=== PATIENT | female | born 1970 | race Caucasian/White ===

== ENCOUNTER 2023-09-14 11:00 | Outpatient (AMB) | payer MEDICARE, SELFPAY ==
--- NOTE | 2023-09-14 11:43 | A.OFFPC_ITS ---
Vital Signs 09/14/23 11:53 BMI Reason not done Patient refused/unable BP 118/82 Blood Pressure Location Lt brachial Position Sitting Respiration 16 Pulse 59 Pulse Source Pulse Oximeter Pulse Oximetry (%) 98 Oxygen Delivery Method Room Air Intake Visit Reasons: pain right wrist Intake Note: New patient visit. Right wrsit pain. Eligibility Specialist Required: No Allergies acetaminophen [From Percocet] Allergy (Verified 09/14/23 11:48) Vomiting oxycodone [From Percocet] Allergy (Verified 09/14/23 11:48) Vomiting adhesive bandaids Allergy (Uncoded 09/14/23 11:48) skin irritation Medication List - Last Reconciled 09/14/23 by Khadra Abarca MD acetaminophen (Tylenol Extra Strength) 1,000 mg PO BID PRN baclofen 10 mg PO TID ywwbnbjqmb-zkycmzbkbojxa-ldqg 50-325-40 mg 1 tab PO Q4H PRN diclofenac sodium 1% (Voltaren Arthritis Pain) 2 grams topical QID diphenhydramine HCl (Allergy Relief (diphenhydramine)) 25 mg PO BID PRN divalproex 125 mg PO BEDTIME ergocalciferol (vitamin D2) PO fexofenadine (Shirin Allergy) 180 mg PO DAILY ketotifen fumarate 0.025%(0.035%) (Zaditor) 1 drp ophthalmic (eye) BID levothyroxine 100 mcg PO DAILY loperamide 2 mg PO BID PRN loratadine (Claritin) 10 mg PO DAILY lorazepam 2 mg PO .every other day PRN medroxyprogesterone 150 mg IM [id number] multivitamin 1 tab PO DAILY omega 7-uqx-fhq-fish oil 1,000 mg (120 mg-180 mg) (Fish Oil) 1 cap PO DAILY tizanidine 2 mg PO TID triamterene-hydrochlorothiazid 37.5-25 mg 1 cap PO DAILY venlafaxine ER 150 mg PO DAILY Tobacco use date assessed: 09/14/23 Dental Screening Dental Screen Date: 09/14/23 Did you have a dental visit in the last 12 months?: Yes Did you have a dental problem in the last 6 months where you did not have access to dental care?: No Was dental information given to patient?: Patient has dentist HPI HPI Comments History of Present Illness Details 53 year old female with past medical cer ebral palsy with sequelae, continous WC use presenting for increased right hand pain Right hand pain. Says seen in urgent care. Pain is worse in medial wrist, base of thumb and 1st mcp. Doing PT/OT. Just OT now. Would like to extend ROS see HPI PHYSICAL EXAM: GENERAL: Alert and oriented x 3. NAD EYES: EOMI. Anicteric. HENT: Moist mucous membranes. No scleral icterus. No cervical lymphadenopathy. LUNGS: Clear to auscultation bilaterally. CARDIOVASCULAR: Regular rate and rhythm. No murmur. No JVD. ABDOMEN: Soft, non-tender +bs EXTREMITIES: No edema. Non-tender. SKIN: No rashes or lesions. Warm. NEUROLOGIC: No focal neurological deficits. CN II-XII grossly intact PSYCHIATRIC: Cooperative. Appropriate mood and affect [facility] Medical History (Updated 09/19/23 @ 11:35 by Khadra Abarca MD) Spasticity Seasonal allergies Obesity, Class I, BMI 30-34.9 Lymphedema Lobular carcinoma HTN (hypertension) Anxiety and depression Family History (Updated 09/14/23 @ 12:31 by Roxana Monique CMA) Father Throat cancer Mother Fibromyalgia Maternal Grandfather Lung cancer Emphysema lung Paternal Grandfather Diabetes Lymphoma Paternal Grandmother Lymphoma Social History (Updated 09/14/23 @ 11:53 by Roxana Monique CMA) Housing: House Patient Tobacco Use Status: Never used Tobacco e-Cigarette/Vaping Use: Never Used Second Hand Smoke Exposure: Yes Substance Use Type: Marijuana service: Yes Current occupational status: unemployed Cognitive needs: No Hearing needs: No Vision needs: Yes (glasses) Questionnaire PHQ-9 Over the last 2 weeks, how often have you been bothered by any of the following problems? 1. Little interest or pleasure in doing things: several days 2. Feeling down, depressed, or hopeless: several days 3. Trouble falling or staying asleep, or sleeping too much: more than half the days 4. Feeling tired or having little energy: more than half the days 5. Poor appetite or overeating: nearly every day 6. Feeling bad about yourself - or that you are a failure or have let yourself or your family down: more than half the days 7. Trouble concentrating on things, such as reading the newspaper or watching television: not at all 8. Moving or speaking so slowly that other people could have noticed. Or the opposite - being so fidgety or restless that you have been moving around a lot more than usual: not at all 9. Thoughts that you would be better off or of hurting yourself in some way: not at all Total score: 11 Depression Screening Interpretation: Positive Depression Screening Follow-up: Existing condition Depression Screening Done: Yes 61685 - PHQ-9 Billing: Yes Source: Developed by Drs. Aris Wakefield, Marycruz Louis, Kelton Altamirano and colleagues, with an educational santos from [employer]. Thrive Questionnaire Date Thrive assessed: 09/14/23 I am a: Patient What is your living situation today?: I have a steady place to live Within the past 12 months, did the food you bought not last and you didn't have the money to get more?: Never true Within the past 12 months, did you worry whether your food would run out before you got money to buy more?: Never true Do you have trouble paying for medicines?: No Do you have trouble getting transportation to medical appointments?: No Do you have trouble paying your heating and electricity bill?: No Do you have trouble taking care of your child, family member or friend?: No Do you have trouble with day-to-day activities such as bathing, preparing meals, shopping, managing finances, etc.?: No (Has help with this) Are you currently unemployed and looking for a job?: No Are you interested in more education?: No Please select the resources that you would like help with: None Currently or been in a relationship where the following occur: no concerns reported THRIVE Score: 0 AUDIT C Alcohol Use Questionnaire (AUDIT-C) 1. How often do you have a drink containing alcohol?: 2-4 times a month 2. How many drinks containing alcohol do you have on a typical day when you are drinking?: 1 or 2 3. How often do you have six or more drinks on one occasion?: Never Total Score: 2 MARJORIE-7 AMB Questionnaire MARJORIE-7 Date MARJORIE - 7 assessed: 09/14/23 Feeling nervous, anxious, or on edge: 1 = Several days Not being able to stop or control worryin = Not at all Worrying too much about different things: 0 = Not at all Trouble relaxin = Not at all Being so restless that it is hard to sit still: 0 = Not at all Becoming easily annoyed or irritable: 0 = Not at all Feeling afraid as if something awful might happen: 0 = Not at all Total MARJORIE-7 score (0-4 normal; 5-9 mild; 10-14 moderate; 15-21 severe): 1 Source: Developed by Drs. Aris Wakefield, Marycruz Louis, Kelton Altamirano and colleagues, with an educational santos from [employer]. MARJORIE-7 Assessment Billing MARJORIE-7 Assessment Tool: MARJORIE-7 Assessment 54844 Physical exam (Primary Care) Vital Signs: Last Vital Signs Pulse 59 09/14/23 11:53 Resp 16 09/14/23 11:53 BP 118/82 09/14/23 11:53 Pulse Ox 98 09/14/23 11:53 Oxygen Delivery Method Room Air 09/14/23 11:53 Tobacco/Smoking Status: Tobacco use Status Tobacco use date assessed 09/14/23 09/14/23 11:58 Patient Tobacco Use Status Never used Tobacco 09/14/23 11:58 e-Cigarette/Vaping Use Never Used 09/14/23 11:58 PHQ-9: PHQ-9 Score PHQ-9: Total score 11 09/14/23 12:43 Depression Screening Interpretation: Positive Depression Screening Follow-up: Existing condition Thrive Assessment: Date of Thrive Assessment Date Thrive assessed 09/14/23 09/14/23 11:58 Currently or been in a relationship where the following occur: no concerns reported Assessment and Plan Assessment & Plan (1) De Quervain's tenosynovitis, right: Code(s): M65.4 - Radial styloid tenosynovitis [de Quervain] Orders: Orders OT Evaluation and Treatment 09/14/23 G80.9 - Cerebral palsy, unspecified, M65.4 - Radial styloid tenosynovitis [de Quervain] Medications: New diclofenac sodium 1% (Voltaren Arthritis Pain) apply to single elbow, wrist or hand; for hand includes palm/fingers/back of hand 2 grams topical QID 100 grams 0RF itvldhyqoa-finyjfmdtenza-wmez 50-325-40 mg 1 tab PO Q4H PRN 60 tabs 1RF headache 30 days Coding Level of Care Code Est Pt Level 4 (26432) Diagnoses De Quervain's tenosynovitis, right M65.4 Additional Codes MARJORIE-7 Assessment Billing - MARJORIE-7 Assessment Tool: MARJORIE-7 Assessment 26331 ([id number])
[2023-09-14 11:53] VITALS: BP 118/82; PULSE 59; RESP 16; O2SAT 98
== END 2023-09-14 12:47 | disposition home or self-care (01) ==
PROVIDERS: PCP Internal Medicine; Visit Provider Internal Medicine
DX: M65.4 Radial styloid tenosynovitis [de Quervain] (principal)
CPT/HCPCS: 99214

== ENCOUNTER 2023-11-30 10:21 | Outpatient (AMB) | payer MEDICARE, SELFPAY ==
[2023-11-30 11:37] VITALS: BP 123/79; PULSE 51; O2SAT 100
--- NOTE | 2023-11-30 11:37 | A.OFFPC_ITS ---
Vital Signs 11/30/23 11:37 BMI Reason not done Patient refused/unable BP 123/79 Blood Pressure Location Lt radial Position Sitting Pulse 51 Pulse Source Pulse Oximeter Pulse Oximetry (%) 100 Oxygen Delivery Method Room Air Intake Visit Reasons: ANNUAL Intake Note: -Patient is here to have an annual exam. -Patient reports she is out of fioricet and [facility] responded[facility] -[facility]- fax when done and give to patient today. -[facility]- reports they have not received the form yet. -patient would like to discuss flu shot and covid shot. Information Management Specialist Required: No Accompanied by: Self / Same As Patient Allergies acetaminophen [From Percocet] Allergy (Verified 11/30/23 11:50) Vomiting oxycodone [From Percocet] Allergy (Verified 11/30/23 11:50) Vomiting adhesive bandaids Allergy (Uncoded 11/30/23 11:50) skin irritation Tobacco use date assessed: 09/14/23 Dental Screening Dental Screen Date: 09/14/23 HPI HPI Comments History of Present Illness Details 53 year old female with past medical cer ebral palsy with sequelae, WC bound, depression, hypertension headaches, hypothyroid, allergic rhinitis presenting for physical exam CV: On trimaterene-HCTZ 37.5-25mg daily. BP 123/79. No chest pain pain CP: Weakness, deficits in coordination, balance. -Right hand pain. Says seen in urgent ca re. Pain is worse in medial wrist, base of thumb and 1st mcp. Doing PT/OT -She currently has 6 hours care at home daily. She is at least a partial assist for all of her ADLs (toileting, grooming, showering), full assist for many (cooking, cleaning). Sister does finances BH: Currently without psych provider. On effexor 150mg daily, divalproex Endo: Hypothyroid stable on levothyroxine 100mcg daily. Reports recent mammo Decllines colonoscopy. Tried cologuard twice but results invalid ROS see HPI PHYSICAL EXAM: GENERAL: Comfortable in WC. Alert and oriented x 3. NAD EYES: EOMI. Anicteric. HENT: Moist mucous membranes. No scleral icterus. No cervical lymphadenopathy. LUNGS: Clear to auscultation bilaterally. CARDIOVASCULAR: Regular rate and rhythm. No murmur. No JVD. ABDOMEN: Soft, non-tender +bs EXTREMITIES: No edema. Non-tender. SKIN: No rashes or lesions. Warm. NEUROLOGIC: Stable chronic neurologic sequelae PSYCHIATRIC: Cooperative. Appropriate mood and affect [facility] Medical History (Updated 12/01/23 @ 11:09 by Khadra Abarca MD) Spasticity Seasonal allergies Obesity, Class I, BMI 30-34.9 Lymphedema Lobular carcinoma HTN (hypertension) Anxiety and depression Family History Father Throat cancer Mother Fibromyalgia Maternal Grandfather Lung cancer Emphysema lung Paternal Grandfather Diabetes Lymphoma Paternal Grandmother Lymphoma Social History Housing: House Patient Tobacco Use Status: Never used Tobacco e-Cigarette/Vaping Use: Never Used Second Hand Smoke Exposure: Yes Substance Use Type: Marijuana service: Yes Current occupational status: unemployed Cognitive needs: No Hearing needs: No Vision needs: Yes (glasses) Questionnaire Thrive Questionnaire Date Thrive assessed: 09/14/23 MARJORIE-7 AMB Questionnaire MARJORIE-7 Date MARJORIE - 7 assessed: 09/14/23 Source: Developed by Drs. Aris Wakefield, Marycruz Louis, Kelton Altamirano and colleagues, with an educational santos from [employer]. Physical exam (Primary Care) Vital Signs: Last Vital Signs Pulse 51 11/30/23 11:37 BP 123/79 11/30/23 11:37 Pulse Ox 100 11/30/23 11:37 Oxygen Delivery Method Room Air 11/30/23 11:37 Tobacco/Smoking Status: Tobacco use Status Tobacco use date assessed 09/14/23 11/30/23 11:38 Patient Tobacco Use Status Never used Tobacco 11/30/23 11:38 e-Cigarette/Vaping Use Never Used 11/30/23 11:38 Thrive Assessment: Date of Thrive Assessment Date Thrive assessed 09/14/23 11/30/23 11:38 Assessment and Plan Assessment & Plan (1) Physical exam: Code(s): Z00.00 - Encounter for general adult medical examination without abnormal findings Plan: 53 y/o for physical Chart reviewed, updated Preventive measures discussed. (2) Cerebral palsy: Code(s): G80.9 - Cerebral palsy, unspecified Qualifiers: Cerebral palsy type: spastic quadriplegic Qualified Code(s): G80.0 - Spastic quadriplegic cerebral palsy Plan: She is almost full assist with all ADLS. Recommend homemaker assist increase hours to 10h/day. Currently at 6 (3) Major depression, recurrent: Code(s): F33.9 - Major depressive disorder, recurrent, unspecified Qualifiers: Active/Remission status: in partial remission Qualified Code(s): F33.41 - Major depressive disorder, recurrent, in partial remission Plan: stable. continue current medications Orders: Orders TSH reflex Free T4 11/30/23 E03.9 - Hypothyroidism, unspecified, G80.9 - Cerebral palsy, unspecified, Z00.00 - Encounter for general adult medical examination without abnormal findings, Z13.0 - Encounter for screening for diseases of the blood and blood-forming organs and certain disorders involving the immune mechanism, Z13.220 - Encounter for screening for lipoid disorders, Z13.228 - Encounter for screening for other metabolic disorders IRON PROFILE 11/30/23 E03.9 - Hypothyroidism, unspecified, G80.9 - Cerebral palsy, unspecified, Z00.00 - Encounter for general adult medical examination without abnormal findings, Z13.0 - Encounter for screening for diseases of the blood and blood-forming organs and certain disorders involving the immune mechanism, Z13.220 - Encounter for screening for lipoid disorders, Z13.228 - Encounter for screening for other metabolic disorders UA CC w/rflx Micro + Cult 11/30/23 Z00.00 - Encounter for general adult medical examination without abnormal findings, Z13.228 - Encounter for screening for other metabolic disorders Complete Blood Count Auto Diff 11/30/23 E03.9 - Hypothyroidism, unspecified, G80.9 - Cerebral palsy, unspecified, Z00.00 - Encounter for general adult medical examination without abnormal findings, Z13.0 - Encounter for screening for diseases of the blood and blood-forming organs and certain disorders involving the immune mechanism, Z13.220 - Encounter for screening for lipoid disorders, Z13.228 - Encounter for screening for other metabolic disorders Comprehensive Met. Panel 11/30/23 E03.9 - Hypothyroidism, unspecified, G80.9 - Cerebral palsy, unspecified, Z00.00 - Encounter for general adult medical examination without abnormal findings, Z13.0 - Encounter for screening for diseases of the blood and blood-forming organs and certain disorders involving the immune mechanism, Z13.220 - Encounter for screening for lipoid disorders, Z13.228 - Encounter for screening for other metabolic disorders Lipid Panel 11/30/23 E03.9 - Hypothyroidism, unspecified, G80.9 - Cerebral palsy, unspecified, Z00.00 - Encounter for general adult medical examination without abnormal findings, Z13.0 - Encounter for screening for diseases of the blood and blood-forming organs and certain disorders involving the immune mechanism, Z13.220 - Encounter for screening for lipoid disorders, Z13.228 - Encounter for screening for other metabolic disorders Medications: Changed From ergocalciferol (vitamin D2) PO To ergocalciferol (vitamin D2) 50,000 units PO QWEEK 12 caps 3RF 12 weeks Coding Level of Care Code Est Pt Prev Care 40-64y(60289) Diagnoses Physical exam Z00.00 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
== END 2023-11-30 12:57 | disposition home or self-care (01) ==
PROVIDERS: PCP Internal Medicine; Visit Provider Internal Medicine
DX: Z00.00 Encounter for general adult medical examination without abnormal findings (principal); G80.0 Spastic quadriplegic cerebral palsy; F33.41 Major depressive disorder, recurrent, in partial remission
CPT/HCPCS: 99396

== ENCOUNTER 2023-11-30 12:19 | Outpatient (REF) | payer MEDICARE, SELFPAY ==
[2023-11-30 14:09] LABS: MANUAL DIFF FLAG NO
[2023-11-30 14:13] LABS: Basophils Absolute Auto 0.1 X10*3/uL (0.0-0.2); Basophils Percent Auto 0.6 % (0-2); Eosinophils Absolute Auto 0.1 X10*3/uL (0.0-0.4); Eosinophils Percent Auto 1.1 % (0-4); Hematocrit 45.4 % (37.0-47.0); Hemoglobin 15.5 g/dl (12.0-16.0); Imm Gran Abs Auto 0.01 X10*3/uL (0.00-0.03); Imm Gran Pct Auto 0.1 % (0.0-0.4); Lymphocytes Absolute Auto 2.2 X10*3/uL (1.2-4.9); Lymphocytes Percent Auto 27.1 % (20-40); Mean Corpuscular HGB Conc 34.1 g/dl (31.0-35.0); Mean Corpuscular Hemoglobin 30.8 pg (27.0-33.0); Mean Corpuscular Volume 90.3 fL (80.0-98.0); Mean Platelet Volume 8.9 fL (9.4-12.3); Monocytes Absolute Auto 0.5 X10*3/uL (0.1-1.2); Monocytes Percent Auto 5.8 % (2-11); Neutrophils Absolute Auto 5.3 x10*3/uL (2.0-8.3); Neutrophils Percent Auto 65.3 % (45-73); Platelet Count 320 X10*3/uL (160-400); Red Blood Count 5.03 X10*6/uL (4.20-5.50); Red Cell Distribution Width 13.2 % (11.0-16.0); White Blood Count 8.2 X10*3/uL (4.8-10.8)
[2023-11-30 14:44] LABS: Alanine Aminotransferase 24 U/L (0-31); Albumin Level 4.2 g/dL (3.5-5.0); Alkaline Phosphatase 108 U/L (39-117); Anion Gap 13 (12-20); Aspartate Amino Transferase 22 U/L (5-31); Bilirubin Total 0.2 mg/dL (0.0-1.0); Blood Urea Nitrogen 11 mg/dL (9-16); Calcium 9.6 mg/dL (8.4-10.2); Carbon Dioxide 25 mmol/L (22-29); Chloride 107 mmol/L (96-108); Cholesterol 192 mg/dL (<200); Estimated Glomerular Filt Rate > 60; Glucose Random 90 mg/dL (60-115); HDL Cholesterol 37 mg/dL (>40); Iron 68 mcg/dL (30-160); LDL Cholesterol Calculated 136 mg/dL (<100); Percent Iron Saturation 24 % (15-50); Potassium 3.7 mmol/L (3.3-5.1); Sodium 141 mmol/L (135-145); Total Iron Binding Capacity 286 mcg/dL (228-428); Triglycerides 98 mg/dL (<150); Unsaturated Iron Binding 218 ug/dL
[2023-11-30 15:05] LABS: TSH reflex Free T4 1.05 uIU/mL (0.32-4.0)
== END 2023-11-30 12:20 | disposition home or self-care (01) ==
LOC: HO.WFDLDS 12:19
PROVIDERS: Visit Provider Internal Medicine
DX: Z00.00 Encounter for general adult medical examination without abnormal findings (principal); Z13.0 Encounter for screening for diseases of the blood and blood-forming organs and certain disorders involving the immune mechanism; Z13.228 Encounter for screening for other metabolic disorders; G80.9 Cerebral palsy, unspecified; Z13.220 Encounter for screening for lipoid disorders; E03.9 Hypothyroidism, unspecified
CPT/HCPCS: 36415; 80053; 80061; 83540; 84443; 85025

== ENCOUNTER 2024-04-03 10:34 | Outpatient (AMB) | payer MEDICARE, SELFPAY ==
--- NOTE | 2024-04-03 11:33 | A.OFFPC_ITS ---
Vital Signs 04/03/24 11:37 BMI Reason not done Patient refused/unable BP 110/82 Blood Pressure Location Rt brachial Position Sitting Pulse 53 Pulse Source Pulse Oximeter Pulse Oximetry (%) 100 Oxygen Delivery Method Room Air Intake Visit Reasons: four month follow up Intake Note: Four month follow up. Needs refill on fioriocet, triamterene HCTZ, Diclofenac gel, and Lorazepam Transition Social Worker Required: No Allergies acetaminophen [From Percocet] Allergy (Verified 04/03/24 11:33) Vomiting oxycodone [From Percocet] Allergy (Verified 04/03/24 11:33) Vomiting adhesive bandaids Allergy (Uncoded 04/03/24 11:33) skin irritation Tobacco use date assessed: 09/14/23 Dental Screening Dental Screen Date: 09/14/23 HPI HPI Comments History of Present Illness Details 53 year old female with past medical cer ebral palsy with sequelae, WC bound, depression, hypertension headaches, hypothyroid, allergic rhinitis presenting for follow up CV: On trimaterene-HCTZ 37.5-25mg daily. BP well controlled. No chest pain or shortness of breath CP: Weakness, deficits in coordination, balance. -Right hand pain. Says seen in urgent ca re. Pain is worse in medial wrist, base of thumb and 1st mcp. Doing PT/OT -She currently has 6 hours care at home daily. She is at least a partial assist for all of her ADLs (toileting, grooming, showering), full assist for many (cooking, cleaning). Sister does finances -Incontinence: Has been purchasing out o f pocket 120 pull up per month and 30 depends-this is a financial stressor BH: Currently without psych provider. On effexor 150mg daily, divalproex. Sister is having to move out of her house to show the house which is causing her stress-she requests referral for prescribing provider and therapist Endo: Hypothyroid stable on levothyroxine 100mcg daily. Reports mammo UTD Decllines colonoscopy. Tried cologuard twice but results invalid ROS see HPI PHYSICAL EXAM: GENERAL: Comfortable in WC. Alert and oriented x 3. NAD EYES: EOMI. Anicteric. HENT: Moist mucous membranes. No scleral icterus. No cervical lymphadenopathy. LUNGS: Clear to auscultation bilaterally. CARDIOVASCULAR: Regular rate and rhythm. No murmur. No JVD. ABDOMEN: Soft, non-tender +bs EXTREMITIES: No edema. Non-tender. SKIN: No rashes or lesions. Warm. NEUROLOGIC: Stable chronic neurologic sequelae PSYCHIATRIC: Cooperative. Appropriate mood and affect [facility] Medical History (Updated 04/03/24 @ 11:54 by Khadra Abarca MD) Spasticity Seasonal allergies Obesity, Class I, BMI 30-34.9 Lymphedema Lobular carcinoma HTN (hypertension) Anxiety and depression Family History Father Throat cancer Mother Fibromyalgia Maternal Grandfather Lung cancer Emphysema lung Paternal Grandfather Diabetes Lymphoma Paternal Grandmother Lymphoma Social History Housing: House Patient Tobacco Use Status: Never used Tobacco e-Cigarette/Vaping Use: Never Used Second Hand Smoke Exposure: Yes Substance Use Type: Marijuana service: Yes Current occupational status: unemployed Cognitive needs: No Hearing needs: No Vision needs: Yes (glasses) Questionnaire Thrive Questionnaire Date Thrive assessed: 09/14/23 MARJORIE-7 AMB Questionnaire MARJORIE-7 Date MARJORIE - 7 assessed: 09/14/23 Source: Developed by Drs. Aris Wakefield, Marycruz Louis, Kelton Altamirano and colleagues, with an educational santos from [employer]. Physical exam (Primary Care) Vital Signs: Last Vital Signs Pulse 53 04/03/24 11:37 BP 110/82 04/03/24 11:37 Pulse Ox 100 04/03/24 11:37 Oxygen Delivery Method Room Air 04/03/24 11:37 Tobacco/Smoking Status: Tobacco use Status Tobacco use date assessed 09/14/23 04/03/24 11:40 Patient Tobacco Use Status Never used Tobacco 04/03/24 11:40 e-Cigarette/Vaping Use Never Used 04/03/24 11:40 Thrive Assessment: Date of Thrive Assessment Date Thrive assessed 09/14/23 04/03/24 11:40 Coding Level of Care Code Est Pt Level 4 (62691) Diagnoses Recurrent major depressive disorder, in partial remission F33.41 Active/Remission status: in partial remission 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 Assessment & Plan Assessment & Plan (1) Major depression, recurrent: Code(s): F33.9 - Major depressive disorder, recurrent, unspecified Category: Medical Qualifiers: Active/Remission status: in partial remission Qualified Code(s): F33.41 - Major depressive disorder, recurrent, in partial remission Plan: referral to psychiatry placed continue current medication (2) Cerebral palsy: Code(s): G80.9 - Cerebral palsy, unspecified Category: Medical Qualifiers: Cerebral palsy type: spastic quadriplegic Qualified Code(s): G80.0 - Spastic quadriplegic cerebral palsy Plan: with chronic sequelae DME printed and handed to patient Orders: Referrals Psychiatry Referral F33.41 - Major depressive disorder, recurrent, in partial remission, G80.0 - Spastic quadriplegic cerebral palsy Medications: New triamterene-hydrochlorothiazid 37.5-25 mg 1 cap PO DAILY 90 caps 3RF [Pullups-2xl] 1 each four times daily 120 ea 11RF G80.0 - Spastic quadriplegic cerebral palsy, R32 - Unspecified urinary incontinence venlafaxine ER 150 mg PO DAILY 90 caps 3RF [Depends-2xl] Once daily as needed for incontinence 30 ea 11RF G80.0 - Spastic quadriplegic cerebral palsy, R32 - Unspecified urinary incontinence tirzepatide (weight loss) (Zepbound) for 4 weeks 2.5 mg (0.5 mL) subcut QWEEK 2 mL 3RF Refilled itwaqvegyn-krjxcskqszclc-ofcm 50-325-40 mg 1 tab PO Q4H 30 days PRN 60 tabs 0RF pain lorazepam 2 mg PO DAILY PRN 30 tabs 3RF anxiety, muscle spasm
[2024-04-03 11:37] VITALS: BP 110/82; PULSE 53; O2SAT 100
== END 2024-04-03 12:13 | disposition home or self-care (01) ==
LOC: HO.HMCFM 10:34
PROVIDERS: PCP Internal Medicine; Visit Provider Internal Medicine
DX: F33.41 Major depressive disorder, recurrent, in partial remission (principal); G80.0 Spastic quadriplegic cerebral palsy

== ENCOUNTER → 2024-04-03 10:34 | Outpatient (BNVA) | payer MEDICARE, SELFPAY | PROVIDERS: PCP Internal Medicine; Visit Provider Internal Medicine | DX: F33.41 Major depressive disorder, recurrent, in partial remission (principal); G80.0 Spastic quadriplegic cerebral palsy; I10 Essential (primary) hypertension; E03.9 Hypothyroidism, unspecified; Z79.899 Other long term (current) drug therapy | CPT/HCPCS: 99212 ==

== ENCOUNTER 2024-07-25 10:04 | Outpatient (AMB) | payer MEDICARE, MEDICAID, SELFPAY ==
--- NOTE | 2024-07-25 10:29 | MHC.PC.OV ---
Vital Signs 07/25/24 10:39 Height 5 ft 1 in Weight 222 lb 3 oz BMI 42.0 BP 112/64 Blood Pressure Location Lt brachial Position Sitting Pulse 67 Pulse Source Pulse Oximeter Temp 97.4 F Temp Source Temporal Artery Scan Pulse Oximetry (%) 96 Oxygen Delivery Method Room Air Intake Visit Reasons: follow-up care, resched Intake Note: Nata presents in the offie today for a follow up. Allergies acetaminophen [From Percocet] Allergy (Verified 07/25/24 10:33) Vomiting oxycodone [From Percocet] Allergy (Verified 07/25/24 10:33) Vomiting adhesive bandaids Allergy (Uncoded 04/03/24 11:33) skin irritation Tobacco use date assessed: 07/25/24 Dental Screening Dental Screen Date: 07/25/24 Did you have a dental visit in the last 12 months?: Yes Did you have a dental problem in the last 6 months where you did not have access to dental care?: No Was dental information given to patient?: Patient has dentist HPI HPI Comments History of Present Illness Details 53 year old female with past medical cerebral palsy with sequelae, WC bound, depression, hypertension, hyperlipidemia, headaches, hypothyroid, allergic rhinitis presenting for follow up CV: On trimaterene-HCTZ 37.5-25mg daily. BP well controlled. No chest pain or shortness of breath. she has hld, not on statin therapy CP: Weakness, deficits in coordination, balance. Paperwork today to get necessary home health-completed. -Right hand pain. Pain is worse in medial wrist, base of thumb and 1st mcp. Doing PT/OT -She is at least a partial assist for all of her ADLs (toileting, grooming, showering), full assist for many (cooking, cleaning). Sister does finances -Incontinence: Has been purchasing out of pocket 120 pull up per month and 30 depends-this is a financial stressor. she has received a script or this BH: Currently without psych provider. On effexor 150mg daily, divalproex. Sister is having to move out of her house to show the house which is causing her stress-she requests referral for prescribing provider and therapist Endo: Hypothyroid stable on levothyroxine 100mcg daily. She is obese and unable to exercise. she received a zepbound denial. Reports mammo UTD Decllines colonoscopy. Tried cologuard twice but results invalid ROS see HPI PHYSICAL EXAM: GENERAL: Comfortable in WC. Alert and oriented x 3. NAD EYES: EOMI. Anicteric. HENT: Moist mucous membranes. No scleral icterus. No cervical lymphadenopathy. LUNGS: Clear to auscultation bilaterally. CARDIOVASCULAR: Regular rate and rhythm. No murmur. No JVD. ABDOMEN: Soft, non-tender +bs EXTREMITIES: No edema. Non-tender. SKIN: No rashes or lesions. Warm. NEUROLOGIC: Stable chronic neurologic sequelae PSYCHIATRIC: Cooperative. Appropriate mood and affect [facility] Medical History Spasticity Seasonal allergies Obesity, Class I, BMI 30-34.9 Lymphedema Lobular carcinoma HTN (hypertension) Anxiety and depression Family History Father Throat cancer Mother Fibromyalgia Maternal Grandfather Lung cancer Emphysema lung Paternal Grandfather Diabetes Lymphoma Paternal Grandmother Lymphoma Social History Housing: House Alcohol intake: never Patient Tobacco Use Status: Never used Tobacco e-Cigarette/Vaping Use: Never Used Second Hand Smoke Exposure: Yes Substance Use Type: Marijuana service: Yes Current occupational status: unemployed Cognitive needs: No Hearing needs: No Vision needs: Yes (glasses) Questionnaire Thrive Questionnaire Date Thrive assessed: 09/14/23 MARJORIE-7 AMB Questionnaire MARJORIE-7 Date MARJORIE - 7 assessed: 09/14/23 Source: Developed by Drs. Aris Wakefield, Marycruz Louis, Kelton Altamirano and colleagues, with an educational santos from [employer]. Physical exam (Primary Care) Vital Signs: Last Vital Signs Temp 97.4 F 07/25/24 10:39 Pulse 67 07/25/24 10:39 BP 112/64 07/25/24 10:39 Pulse Ox 96 07/25/24 10:39 Oxygen Delivery Method Room Air 07/25/24 10:39 BMI result Body Mass Index 42.0 Tobacco/Smoking Status: Tobacco use Status Tobacco use date assessed 07/25/24 07/25/24 10:39 Patient Tobacco Use Status Never used Tobacco 07/25/24 10:39 e-Cigarette/Vaping Use Never Used 07/25/24 10:39 Thrive Assessment: Date of Thrive Assessment Date Thrive assessed 09/14/23 07/25/24 10:31 Coding Level of Care Code Est Pt Level 4 (38400) Diagnoses Obesity, Class III, BMI 40-49.9 (morbid obesity) E66.813 Dyslipidemia E78.5 Primary hypertension I10 Hypertension type: primary hypertension Assessment & Plan Assessment & Plan (1) Obesity, Class III, BMI 40-49.9 (morbid obesity): Code(s): E66.813 - Obesity, class 3 Category: Medical (2) Dyslipidemia: Code(s): E78.5 - Hyperlipidemia, unspecified Category: Medical (3) HTN (hypertension): Code(s): I10 - Essential (primary) hypertension Category: Medical Qualifiers: Hypertension type: primary hypertension Qualified Code(s): I10 - Essential (primary) hypertension Plan 54 year old for follow up Cerebral palsy-requiring home assistance. Form completed. HTN-adequately controlled on medications Obesity-htn, hld, unable to exercise. Dietary modifications unsuccesful. GLP ordered Orders: Orders Comprehensive Met. Panel 07/25/24 E03.9 - Hypothyroidism, unspecified, R53.1 - Weakness, Z13.228 - Encounter for screening for other metabolic disorders TSH reflex Free T4 07/25/24 E03.9 - Hypothyroidism, unspecified, R53.1 - Weakness, Z13.228 - Encounter for screening for other metabolic disorders Hemoglobin A1c 07/25/24 E03.9 - Hypothyroidism, unspecified, R53.1 - Weakness, Z13.228 - Encounter for screening for other metabolic disorders Medications: New Zepbound (tirzepatide (weight loss)) for 4 weeks 2.5 mg (0.5 mL) subcut QWEEK 2 mL 0RF NS E66.813 - Obesity, class 3, E78.5 - Hyperlipidemia, unspecified, I10 - Essential (primary) hypertension Refilled lorazepam 2 mg PO DAILY PRN 30 tabs 3RF anxiety, muscle spasm
[2024-07-25 10:39] VITALS: BP 112/64; PULSE 67; TEMP 36.3; O2SAT 96; BMI 42.0
--- OUTSIDE RECORDS SUMMARY | 2024-07-25 11:28 | XMS_ITS ---
Author Organization [facility] Address [address] [facility] [place] [address] Care Team Providers Care [employer] Name Role Phone Khadra Rivera MD Primary Care Provider Erik James [phone] REASON FOR VISIT Heel Lift Boot Encounters Encounter Location Date Provider Diagnosis [facility] [address] [place] [id number] 07/20/2024 Erik Mccray Plan Of Treatment Next Appt Details Provider Name:Erik Mccray , 10/19/2024 11:30:00 AM, [address], [phone], Progress Notes * Nata PRIEST MDOB:[birth year] (54 yo F)Acc No.[id number]:07/20/2024 Patient:?Nata PRIEST :1970???Age:54 Y???Sex:Female [address]:[address] [place] [address], [place] [address] * true * Date:? Generated for Printi ng/Faadamg/eTransmitting on:?07/25/2024 11:28 AM EDT
--- OUTSIDE RECORDS SUMMARY | 2024-07-25 11:28 | XMS_ITS ---
[facility] Address [address] [place] [address] Care Team Providers Care Public Health Physician Name Role Phone Khadra Rivera MD Primary Care Provider Erik James Unavailable [phone] Allergies Allergen (clinical drug ingredient) Drug/Non Drug Allergy documented on EMR Reaction Allergy Type Onset Date Status acetaminophen / oxycodone Percocet Dizziness, Nausea Drug Allergy Active Adhesive Rash Allergy Active REASON FOR VISIT At Risk Footcare, Open sore Medications Medication SIG (Take, Route, Frequency, Duration) Notes Start Date End Date Status Zaditor Active Venlafaxine HCl ER 150 MG 1 capsule with food Orally Once a day for 30 day(s) Active Vitamin D2 Active Heel Lift Convoluted Foam Suspension Boot As directed Wear Daily for as needed 07/17/2024 Active Heel Lift Convoluted Foam Suspension Boot As directed Wear Daily for as needed 07/17/2024 Active Triamterene-HCTZ 37.5-25 MG 1 tablet in the morning Orally Once a day for 30 day(s) Active tylenol Active tiZANidine HCl 2 MG 1 tablet as needed O rally Three times a day Active LORazepam 2 MG 1 tablet at bedtime as needed Orally Once a day Active THC Free Active Ketotifen Fumarate A ctive Ibuprofen 200 MG 1 tablet with food o r milk as needed Orally Three times a day Active Fish Oil 1000 MG 1 capsule Orally Onc e a day for 30 day(s) Active Loperamide HCl 2 MG 1 capsule as needed Orally Four times a day Active Levothyroxine Sodium 100 MCG 1 tablet in the morning on an empty stomach Orally Once a day for 30 day(s) Active Fioricet Active Divalproex Sodium 125 MG 1 tablet Orally Once a day for 30 day(s) Active Depo-Provera 150 MG/ML 1 mL Intramuscular Active diphenhydrAMINE HCl 25 MG 1 capsule at b edtime as needed Orally Once a day for 30 day(s) Active cloNIDine HCl 0.2 MG 1 tablet Orally Onc e a day for 30 day(s) Active Claritin 10 MG 1 tablet Orally Once a day for 30 day(s) Active Baclofen 10 MG/20ML as directed Intrathecal Active Centrum Women - as directed Orally Active Social History Tobacco Use: Social History Observation Description Date Details (start date - stop date) Never Smoker NA - NA Alcohol Screen Question Answer Notes Did you have a drink contain ing alcohol in the past year? Yes How often did you have a dri nk containing alcohol in the past year? Monthly or less (1 point) How many drinks did you have on a typical day when you were drinking in the past year? 1 or 2 drinks (0 point) How often did you have 6 or more drinks on one occasion in the past year? Never (0 point) Points 1 Interpretation Negative Tobacco use other than smoking: Question Answer Notes Are you an other tobacco user? No Tobacco Control (Standard) Question Answer Notes Tobacco use: Nonsmoker Additional Findings: Tobacco non-user Current no nsmoker Problems Problem Type SNOMED Code ICD Code Onset Dates Problem Status W/U Status Risk Notes Problem Pressure injury of left foot stage I (disorder) (10779449578 4106) Pressure injury of left foot, stage 1 (L89.891) Active confirmed Response to treatment, Nonapplicable Problem Pressure injury of right foot stage I (disorder) (16841814116 4102) Pressure injury of right foot, stage 1 (L89.891) Active confirmed Response to treatment Nonapplicable Vital Signs Height 5ft 1in in 07/17/2024 Weight 200 lbs 07/17/2024 BMI 37.79 kg/m2 07/17/2024 Procedures Procedure Date Ordered Date Performed Result Body Sit e 99653-ZDDO SKIN LESIONS, 2 TO 4 07/17/2024 N/A [id number] DYSTROPHIC NAILS ANY # 07/17/2024 N/A Encounters Encounter Location Date Provider Diagnosis [facility] [place] [address] [place] [address] 07/17/2024 Erik Mccray Atherosclerosis of three affiliated artery of both lower extremities, with unspecified presence of clinical manifestation I70.203 ; Cerebral palsy, unspecified type G80.9 ; Pressure injury of left foot, stage 1 L89.891 and Pressure injury of right foot, stage 1 L89.891 Assessments Encounter Date Diagnosis (ICD Code) Assessment Notes Treatment Notes Treatment Clinical Notes Section Notes 07/17/2024 Atherosclerosis of three affiliated artery of both lower extremities, with unspecified presence of clinical manifestation (ICD-10 - I70.203) 07/17/2024 Cerebral palsy, unspecified type (ICD-10 - G80.9) 07/17/2024 Pressure injury of left foot, stage 1 (ICD-10 - L89.891) Response to treatment, Nonapplicable 07/17/2024 Pressure injury of right foot, stage 1 (ICD-10 - L89.891) Response to treatment Nonapplicable Plan Of Treatment Medication Medication Name Sig Start Date Stop Date Notes Heel Lift Convoluted Foam Suspension Boot As directed Wear Daily for as needed 07/17/2024 Heel Lift Convoluted Foam Suspension Boot As directed Wear Daily for as needed 07/17/2024 Pending Test Test Name Order Date [id number]-[id number] SKIN LESIONS, 2 TO 4 07/18/19 [id number] DYSTROPHIC NAILS ANY # Next Appt Details Follow Up: prn, Reason: Provider Name:Eirk Gallegosunier , 10/19/2024 11:30:00 AM, [address] [facility], [place] [address], [place], [address], Procedure Notes * Category Sub-Category Detail Notes Keratoma Treatment Parring or Cutting o f Benign Hyperkeratotic Lesion(s) (-56) 2-4 Lesions - Due to the at risk nature of the patients medical condition as documented in the exam findings, performance of this keratoderma treatment is medically necessary as its management by an unskilled/untrained nonprofessional would put this patients foot and overall health at risk. Therefore, the benign hyperkeratotic lesions, (2) in total, locations as stated and described in the exam ( Plantar, Heel(s) , B/L ), were pared, and/or cut utilizing a sterile 15 blade, tissue nippers, and/or power dremel instrumentation by the physician of record - 69800, Q8 Nail Reduction Nail Reduction (-27) Trimming o f all dystrophic nails - Due to the at risk nature of the patients medical condition as documented in the exam findings, performance of this nail treatment is medically necessary as its management by an unskilled/untrained nonprofessional would put this patients foot and overall health at risk. Therefore, the dystrophic nails, in locations as stated and described in the exam ( TA, T1, T2, T3, T4, T5, T6, T7, T8, T9 ), were debrided by the phisician of record to reduce/remove overall nail length and girth, by manual and electrical means with use of a nail nipper and/or dremel, to more viable healthy nail plate or bed tissue - G0127, Q8 Progress Notes * Nata PRIEST MDOB:[birth year] (54 yo F)Acc No.[id number]:07/17/2024 Progress Note Patient:?Nata PRIEST Provider:?Erik Mccray DPM :1970???Age:54 Y???Sex:Female D ate:07/17/2024 Address:[address] [place], [place] [id number] Pcp:Khadra iRvera MD Subjective: * Chief Complaints: * ???At Risk FootcareOpen sore * HPI: ???At Risk footcare:?Pt States Last PCP Visit:?Date?04/06/2024 ???Skin problems:?Nature:?Pre-Ulcer.?Location:?Bottom, Back, Heel/Rearfoot, B/L.?Duration:?several days.?Onset/Cause:?gradual, pressure from lying down.?Course:?worse.?Aggravated by:?any pressure.?Treatments:?none.? * ROS:?General/Constitutional:?Nausea?denies.?Vomiting?denies.?Hunger Thirst?denies.?Loss appetite?denies.?Chills?denies.?Fatigue?denies.?Fever?denies.?Night Sweats?denies.?Unexplained weight loss?denies.?Unexplained weight gain?denies.?HEENTM:?Dentures?denies.?Dizziness?denies.?Glasses/contacts?denies.?Retinopathy?de nies.?Blurred/double vision?denies.?TMJ?admits.?Discharge/drainage?denies.?Implants?denies.?Sore throat?denies.?Dental implants?denies.?Hard of hearing ?denies.?Difficulty chewing/swallowing/speaking?denies.?Nose bleeds?denies.?Sore mouth?denies.?Respiratory:?On Oxygen?denies.?Pneumonia/pleurisy?denies.?Bronchitis?denies.?Emphysema?denies.?C oughing?denies.?Cough blood?denies.?Shortness of breath?denies.?Wheezing?denies.?Cardiovascular:?Pacemaker?denies.?MVP?denies.?WPW?denies.?CHF?denies.?Heart attack?denies.?Septal defect?denies.?Rapid beat?denies.?Chest pain ?denies.?Atrial Fib.?denies.?Murmur/Palpitations?denies.?Gastrointestinal:?Hemorrhoids?admits.?Stomach/Abdominal pain?denies.?Dark blood stool?denies.?Irritable bowel ?denies.?Constipation?denies.?Diarrhea?denies.?Hematology:?Swelling?admits.?Clots?denies.?Varicose Veins?denies.?Bruising?denies.?Bleeding problem?denies.?Genitourinary:?Blood urine?denies.?Frequent/Painfu/urination/bladder control?admits.?Kidney stones?denies.?Infection (UTI)?denies.?Nephropathy?denies.?sex trans dis (STD)?denies.?Prostate?denies.?Musculoskeletal:?Hammertoes?admits.?Bunions?admits.?Back Pain?denies.?Muscle Cramps/ Resting?denies.?Muscle cramps / walking?denies.?Generalized aches and pains?denies.?Weakness?denies.?Integ.:?Ferguson?denies.?Scars?denies.?Corns/calluses?admits.?Ingrown nails?admits.?Painful nails?admits.?Open Sores?denies.?Rashes?denies.?Neurologic:?Difficulty sleeping?admits.?Brain disorder?denies.?Numbness?denies.?Balance trouble?admits.?Confusion?denies.?Fainting/blackouts?denies.?Tingling?denies.?Tr emors?denies.? * Medical History:? * Surgical History:?Left knee Arthrocopic 1990Hamstring abd release as a child bunionectomy - both feet * Hospitalization/Major Diagno stic Procedure:?No Hospitalization History. * Family History:?Mother: tala massey, diagnosed with Family history of arthritis.?Father: alive, diagnosed with Other malignant neoplasm of unspecified site, Unspecified essential hypertension.?Paternal Grand Father: diagnosed with Other malignant neoplasm of unspecified site.?Maternal aunt: diagnosed with Other malignant neoplasm of unspecified site.? * Social History:?Tobacco Use:?Tobacco use other than smoking?Are you an other tobacco user??No ?Tobacco Control (Standard)?Tobacco use:?Nonsmoker ?Additional Findings: Tobacco non-user?Current nonsmoker ???Drugs/Alcohol:?Drugs?Have you used drugs other than those for medical reasons in the past 12 months??No ?Alcohol Screen?Did you have a drink containing alcohol in the past year??Yes ?How often did you have a drink containing alcohol in the past year??Monthly or less (1 point) ?How many drinks did you have on a typical day when you were drinking in the past year??1 or 2 drinks (0 point) ?How often did you have 6 or more drinks on one occasion in the past year??Never (0 point) ?Points?1 ?Interpretation?Negative ???Miscellaneous:?Caffeine: yes, frequency:, 1-2 cups per day. ?Children: no. ?Exercise: yes, walk short, walk around home. ?Marital status: single. ?Occupation: disabled. * Medications:?TakingBaclofen 10 MG/20ML Solution as directed Intrathecal Centrum Women - Tablet as directed Orally Claritin 10 MG Tablet 1 tablet Orally Once a day cloNIDine HCl 0.2 MG Tablet 1 tablet Orally Once a day Depo-Provera 150 MG/ML Suspension 1 mL Intramuscular diphenhydrAMINE HCl 25 MG Capsule 1 capsule at bedtime as needed Orally Once a day Divalproex Sodium 125 MG Tablet Delayed Release 1 tablet Orally Once a day Fioricet Fish Oil 1000 MG Capsule 1 capsule Orally Once a day Ketotifen Fumarate Ibuprofen 200 MG Tablet 1 tablet with food or milk as needed Orally Three times a day Loperamide HCl 2 MG Capsule 1 capsule as needed Orally Four times a day Levothyroxine Sodium 100 MCG Tablet 1 tablet in the morning on an empty stomach Orally Once a day LORazepam 2 MG Tablet 1 tablet at bedtime as needed Orally Once a day THC Free tiZANidine HCl 2 MG Tablet 1 tablet as needed Orally Three times a day Triamterene-HCTZ 37.5-25 MG Tablet 1 tablet in the morning Orally Once a day tylenol Venlafaxine HCl ER 150 MG Capsule Extended Release 24 Hour 1 capsule with food Orally Once a day Vitamin D2 Zaditor Medication List reviewed and reconciled with the patientTaking Baclofen 10 MG/20ML Solution as directed Intrathecal Taking Centrum Women - Tablet as directed Orally Taking Claritin 10 MG Tablet 1 tablet Orally Once a day Taking cloNIDine HCl 0.2 MG Tablet 1 tablet Orally Once a day Taking Depo-Provera 150 MG/ML Suspension 1 mL Intramuscular Taking diphenhydrAMINE HCl 25 MG Capsule 1 capsule at bedtime as needed Orally Once a day Taking Divalproex Sodium 125 MG Tablet Delayed Release 1 tablet Orally Once a day Taking Fioricet Taking Fish Oil 1000 MG Capsule 1 capsule Orally Once a day Taking Ketotifen Fumarate Taking Ibuprofen 200 MG Tablet 1 tablet with food or milk as needed Orally Three times a day Taking Loperamide HCl 2 MG Capsule 1 capsule as needed Orally Four times a day Taking Levothyroxine Sodium 100 MCG Tablet 1 tablet in the morning on an empty stomach Orally Once a day Taking LORazepam 2 MG Tablet 1 tablet at bedtime as needed Orally Once a day Taking THC Free Taking tiZANidine HCl 2 MG Tablet 1 tablet as needed Orally Three times a day Taking Triamterene-HCTZ 37.5-25 MG Tablet 1 tablet in the morning Orally Once a day Taking tylenol Taking Venlafaxine HCl ER 150 MG Capsule Extended Release 24 Hour 1 capsule with food Orally Once a day Taking Vitamin D2 Taking Zaditor Medication List reviewed and reconciled with the patient * Allergies:?Adhesive: RashPer cocet: Dizziness, Nauseayes[Allergies Verified] Objective: * Vitals:?Ht: 5ft 1in, Wt:200, BMI:37.79, Shoe size: 8.5, Ht-cm: 154.94 cm, Wt-k.72 kg. * Examination: ???Vascular: ?DP PULSES (B):? 0/4, B/L.?PT PULSES (B):? 0/4, B/L.?CAPILLARY FILL TIME:? delayed, all digits, B/L.?TROPHIC CONDITION-TEXTURE/ELASTICITY/TURGOR/HAIR GROWTH (B):? decreased, with sparse to absent hair growth, B/L.?TEMPERTURE GRADIENT (C):? decreased, cool to cool, proximal to distal, B/L.?PIGMENTATION:?rubrous, B/L.?EDEMA (C):?2/4 , non-pitting , without aching pain , Leg(s) , Ankle(s) , Foot , B/L.?CLAUDICATION (C):?denies, B/L.?REST PAIN:?denies, B/L.?Nails: ?NAILS are:?Elongated, overgrown, dystrophic, TA, T1, T2, T3, T4, T5, T6, T7, T8, T9?.?Dermatologic: ?SKIN FINDINGS:?Skin exam reveals Keratotic lesion(s) located at , Plantar, Heel(s) , B/L.?ULCER:? LOCATION,Plantar,Posterior,HEEL,B/L feet, SIZE, 15mm X 15mm X 1mm, BASE, granular, RIM, hyperkeratotic, UNDERMINING, absent, TRACKING,Partial to, Full thickness breakdown of skin, DRAINAGE, serosanguineous, mild, NECROTIC TISSUE, loosely-adherent, yellow slough, MALODOR, absent, CALOR, absent, ERYTHEMA, absent, PAIN ON PALPATION, present.?Orthopedic: ?MUSCLE STRENGTH:?Generalized decrease in strength, B/L, Drop foot, B/L.?Neurological: ?SENSORY:?Neurological exam reveals intact sensorium, pain sensation normal, vibration sensation intact, pinprick sensation is normal in the lower extremities, Pt denies, anesthesia, burning, paresthesia, tingling, B/L.?General Examination: ?GENERAL APPEARANCE:?Reveals a pleasant, alert, well-nourished, well- developed, well hydrated individual, who demonstrates proper attention to hygiene/body habitus, and is in no acute distress, Pt serves as own?historian for office visit today.?ORIENTED:?person, place, and time.? Assessment: * Assessment: 1.?Atherosclerosis of three affiliated artery of both lower extremities, with unspecified presence of clinical manifestation - I70.203 (Primary)???Specify :Q8???2.?Cerebral palsy, unspecified type - G80.9???3.?Pressure injury of left foot, stage 1 - L89.891???Specify :Acute problem, Complicated w/ Multiple Tx Options(4), Dx New problem, Prognosis Uncertain (4)???Notes :Response to treatment, Nonapplicable???4.?Pressure injury of right foot, stage 1 - L89.891???Specify :Acute problem, Complicated w/ Multiple Tx Options(4), Dx New problem, Prognosis Uncertain (4)???Notes :Response to treatment Nonapplicable??? Plan: * Treatment: 2.?Pressure injury of left f oot, stage 1? Start Heel Lift Convoluted Foam Suspension Boot, As directed, Wear, Daily, as needed, Refills 0.?? 3.?Pressure injury of right foot, stage 1? Start Heel Lift Convoluted Foam Suspension Boot, As directed, Wear, Daily, as needed, Refills 0.?? * Procedures:?Keratoma Treatment:?Parring or Cutting of Benign Hyperkeratotic Lesion(s)?(-56) 2-4 Lesions - Due to the at risk nature of the patients medical condition as documented in the exam findings, performance of this keratoderma treatment is medically necessary as its management by an unskilled/untrained nonprofessional would put this patients foot and overall health at risk. Therefore, the benign hyperkeratotic lesions, (2) in total, locations as stated and described in the exam ( Plantar, Heel(s) , B/L ), were pared, and/or cut utilizing a sterile 15 blade, tissue nippers, and/or power dremel instrumentation by the physician of record - 04765, Q8.?Nail Reduction:?Nail Reduction?(-27) Trimming of all dystrophic nails - Due to the at risk nature of the patients medical condition as documented in the exam findings, performance of this nail treatment is medically necessary as its management by an unskilled/untrained nonprofessional would put this patients foot and overall health at risk. Therefore, the dystrophic nails, in locations as stated and described in the exam ( TA, T1, T2, T3, T4, T5, T6, T7, T8, T9 ), were debrided by the phisician of record to reduce/remove overall nail length and girth, by manual and electrical means with use of a nail nipper and/or dremel, to more viable healthy nail plate or bed tissue - G0127, Q8.? * Procedure Codes:?G0127 GENARO ING DYSTROPHIC NAILS ANY #, Modifiers: XS , [id number] TRIM SKIN LESIONS, 2 TO 4, Modifiers: XS , Q8 * Preventive Medicine:? ??Counseling:?Discussion:?-14: Office or other outpatient visit for the evaluation and management of an established patient, which required a medically appropriate history and/or examination and MODERATE level of DECISION MAKING for: 1 OR MORE CHRONIC PROBLEM(S) THATS WORSENING, 2 STABLE CHRONIC PROBLEMS, A NEWLY DIAGNOSED PROBLEM WITH UNCERTAIN PROGNOSIS, AN ACUTE COMPLICATED INJURY WITH MULTIPLE TREATMENT OPTIONS, OR AN ACUTE PROBLEM WITH ACCOMPANYING SYSTEMIC SYMPTOMS, THAT POSE(S) A MODERATE RISK OF MORBIDITY. THIS CONDITION MAY ALSO INCLUDE RX DRUG MANAGEMENT, OR A DECISON FOR MINOR SURGERY. The visit on the day of the encounter encompassed interpreting the data and educating the patient as to the nature of their condition, treatment options available according to their individual PMH, meds, allergies, and overall health/living conditions, as well as any potential risks or complications that may occur from a failure to adhere to, and participate in, the recommended course of therapy. The discussion included a complete verbal, and/or written explanation of the examination results, any x-rays taken, the proposed diagnosis, and outline of the treatment plan. A schedule for future care needs was also explained. The patient verbalized an understanding of the instructions at this time and agreed to be an active participant in their treatment. If the patient should think of any questions or concerns after the visit, I have encouraged the patient to call the office.?Ulcer:?A detailed plan of care was reviewed with the patient. We emphasized the fact that the patient takes on an active participating role in the treatment process and emphasized to them that they are an included, valued, and important member of the wound healing team in order to reach an expedient successful outcome. The patient agreed to follow their medically recommended diet while increasing their protein intake if safely able to do so, maintain proper bodily hydration, abide by weight-bearing restrictions at all times, quit all current smoking habits if any, and diligently follow any/all dressing change instructions. It was clearly made known to the patient that if they fail to do their part, they will likely extend their course of treatment as well as possibly increase their risk of adverse events including amputation. The patient was instructed on importance of proper wound care consisting of pressure reduction, and proper maintenance of a moist wound environment. Precautions Taken: Offloading/Pressure reduction via rest/ limited activity to essential to daily life only, wheelchair, shoe modification, accommodative padding, sharp debridement, and take/apply medication as directed. THE SHORT-TERM GOALS of wound care include, prevent hospitalization, debridement to remove devitalized tissue, minimize risk for soft tissue or bone infection, initiate and promote the wound healing process, and prevent further complication such as loss of limb or life were discussed/reviewed. THE LONG-TERM GOALS of wound care include, complete wound closure if possible, facilitate patient comfort, prevent recurrence, and return the patient to their pre-ulcerative state of activity and lifestyle if possible, Rx Pressure Accommodative RF foam boot for rest.? ??Screening/Special Tests:?Fall Risk?Screening:?No falls in the past year Fall was an inadvertent slip from chair ?FALLS: Screening for Future Fall Risk?Have you had any falls with injury in the past year??No * Follow Up:?prn * Images: * Sign off status: Completed true * Provider:?Erik Mccray DPM Date:?2024 Generated for Deedee greenfield/Annemarie/Juan on:?07/25/2024 11:28 AM EDT History and Physical Notes * HPI (History of Present Illness) Category Sub-Category Detail Notes Category Not es Skin problems Nature: Pre-Ulcer Location: Bottom, Back, Heel/R earfoot, B/L Duration: several days Onset/Cause: gradual, pressure fr om lying down Course: worse Aggravated by: any pressure Treatments: none At Risk footcare Pt States Last PCP Visit: Date: 5 Examination Category Sub-Category Detail Notes Category Not es Neurological SENSORY: Neurological exa m reveals intact sensorium, pain sensation normal, vibration sensation intact, pinprick sensation is normal in the lower extremities, Pt denies, anesthesia, burning, paresthesia, tingling, B/L Dermatologic SKIN FINDINGS: Skin exam reveal s Keratotic lesion(s) located at , Plantar, Heel(s) , B/L ULCER: LOCATION,Plantar,Pos terior,HEEL,B/L feet, SIZE, 15mm X 15mm X 1mm, BASE, granular, RIM, hyperkeratotic, UNDERMINING, absent, TRACKING,Partial to, Full thickness breakdown of skin, DRAINAGE, serosanguineous, mild, NECROTIC TISSUE, loosely-adherent, yellow slough, MALODOR, absent, CALOR, absent, ERYTHEMA, absent, PAIN ON PALPATION, present Orthopedic MUSCLE STRENGTH: Generalized dec rease in strength, B/L, Drop foot, B/L General Examination GENERAL APPEARANCE: Reveals a pleasant, alert, well- nourished, well-developed, well hydrated individual, who demonstrates proper attention to hygiene/body habitus, and is in no acute distress, Pt serves as own historian for office visit today ORIENTED: person, place, and t annita Vascular DP PULSES (B): 0/4, B/L PT PULSES (B): 0/4, B/L CAPILLARY FILL TIME: delayed, all digits , B/L TEMPERTURE GRADIENT (C): decreased, cool to cool, proximal to distal, B/L TROPHIC CONDITION-TEXTURE/ELASTICITY/TURGOR/HAIR GROWTH (B): decreased, with sparse to absent hair gr owth, B/L EDEMA (C): 2/4 , non-pitting , without aching pain , Leg(s) , Ankle(s) , Foot , B/L CLAUDICATION (C): denies, B/L REST PAIN: denies, B/L PIGMENTATION: rubrous, B/L Nails NAILS are: Elongated, overg rown, dystrophic, TA, T1, T2, T3, T4, T5, T6, T7, T8, T9
--- OUTSIDE RECORDS SUMMARY | 2024-07-25 11:28 | XMS_ITS ---
Author Organization [facility] Address [address] [place] [address] Care Team Providers Care Front End Software Developer Name Role Phone Khadra Rivera MD Primary Care Provider Erik James Unavailable [phone] Allergies Allergen (clinical drug ingredient) Drug/Non Drug Allergy documented on EMR Reaction Allergy Type Onset Date Status acetaminophen / oxycodone Percocet Dizziness, Nausea Drug Allergy Active Adhesive Rash Allergy Active REASON FOR VISIT At Risk Footcare, Painful Toe(s) Medications Medication SIG (Take, Route, Frequency, Duration) Notes Start Date End Date Status Baclofen 10 MG/20ML as directed Intrathecal Active Zaditor Active Vitamin D2 Active Venlafaxine HCl ER 150 MG 1 capsule with food Orally Once a day for 30 day(s) Active tylenol Active THC Free Active LORazepam 2 MG 1 tablet at bedtime as needed Orally Once a day Active Levothyroxine Sodium 100 MCG 1 tablet in the morning on an empty stomach Orally Once a day for 30 day(s) Active Triamterene-HCTZ 37.5-25 MG 1 tablet in the morning Orally Once a day for 30 day(s) Active tiZANidine HCl 2 MG 1 tablet as needed O rally Three times a day Active Loperamide HCl 2 MG 1 capsule as needed Orally Four times a day Active Ibuprofen 200 MG 1 tablet with food o r milk as needed Orally Three times a day Active Ketotifen Fumarate A ctive Fish Oil 1000 MG 1 capsule Orally Onc e a day for 30 day(s) Active Fioricet Active Depo-Provera 150 MG/ML 1 mL Intramuscular Active cloNIDine HCl 0.2 MG 1 tablet Orally Onc e a day for 30 day(s) Active Claritin 10 MG 1 tablet Orally Once a day for 30 day(s) Active Divalproex Sodium 125 MG 1 tablet Orally Once a day for 30 day(s) Active diphenhydrAMINE HCl 25 MG 1 capsule at b edtime as needed Orally Once a day for 30 day(s) Active Centrum Women - as directed Orally [...] Additional Findings: Tobacco non-user Current no nsmoker Vital Signs Height 5ft 1in in 04/17/2024 Weight 200 lbs 04/17/2024 BMI 37.79 kg/m2 04/17/2024 Procedures Procedure Date Ordered Date Performed Result Body Sit e 15713-ZDFC SKIN LESIONS, 2 TO 4 04/17/2024 N/A B8400-AHNDNGRY DYSTROPHIC NAILS ANY # 04/17/2024 N/A Encounters Encounter Location Date Provider Diagnosis [facility] [address] [address] 04/17/2024 Erik Mccray Atherosclerosis of [place] artery of both lower extremities, with unspecified presence of clinical manifestation I70.203 ; Pain in right toe(s) M79.674 and Contusion of right great toe without damage to nail, initial encounter S90.111A Assessments Encounter Date Diagnosis (ICD Code) Assessment Notes Treatment Notes Treatment Clinical Notes Section Notes 04/17/2024 Atherosclerosis of [place] artery of both lower extremities, with unspecified presence of clinical manifestation (ICD-10 - I70.203) 04/17/2024 Pain in right toe(s) (ICD-10 - M79.674) 04/17/2024 Contusion of right great toe without damage to nail, initial encounter (ICD-10 - S90.111A) Plan Of Treatment Pending Test Test Name Order Date X ray : Foot, right 2V 04/17/2024 15471-NROE SKIN LESIONS, 2 TO 4 04/17/19 25 L0206-RPTUUAKL DYSTROPHIC NAILS ANY # Next Appt Details Follow Up: prn, Reason: Provider Name:Erik Mccray , 10/19/2024 11:30:00 AM, [address] , [address], [place], [address], Procedure Notes * Category Sub-Category Detail Notes [...] at risk. Therefore, the benign hyperkeratotic lesions, ( 2 ) in total, locations as stated and described in the exam ( Plantar, Heel(s) , B/L ), were pared, and/or cut utilizing a sterile 15 blade, tissue nippers, and/or power dremel instrumentation by the physician of record - 41905, Q8 Nail Reduction Nail Reduction (-27) Trimming [...] Q8 Progress Notes * Nata PRIEST MDOB:[birth year] (53 yo F)Acc No.[id number]:04/17/2024 Progress Note Patient:?Nata PRIEST Provider:?Erik Mccray DPM :1970???Age:53 Y???Sex:Female D ate:04/17/2024 Address:[address] [place], [place] [id number] Pcp:Khadra Rivera MD Subjective: * Chief Complaints: * ???At Risk FootcarePainful T oe(s) * HPI: ???At Risk footcare:?Pt States Last PCP Visit:?Date?04/06/2024 ???Toe pain:?Nature:?aching,?bruising,?discoloration,?swelling,?tenderness,?throbbing.?Location:?Great toe, Right foot.?Duration:?since DOI ( Feb).?Onset/Cause:?states traumatic (slipped while transferring from chair to camode).?Course:?worse.?Aggravated by:?any pressure, standing/walking, shoes.?Treatments:?rest/alter normal daily activity, ice.? * ROS:?General/Constitutional:?Nausea?denies.?Vomiting?denies.?Hunger Thirst?denies.?Loss appetite?denies.?Chills?denies.?Fatigue?denies.?Fever?denies.?Night Sweats?denies.?Unexplained weight loss?denies.?Unexplained [...] T3, T4, T5, T6, T7, T8, T9 , Nail plate intact.?Dermatologic: ?SKIN FINDINGS:?Skin exam reveals Keratotic lesion(s) located at , Plantar, Heel(s) , B/L.?Orthopedic: ?DIGITAL DEFORMITIES:? Reveals pain to palpation, swelling, ecchymosis, and limited ROM, T5.?X-Rays - IMAGING REPORT: ?Clinical Indication(s):? Evaluate for Fracture.?Views:?2 views of Foot, AP, LO, RIGHT??Taken by trained?Podiatric Overhead Door Technician (?C O).?Findings:?severe generalized decrease in bone density.?Fracture:?Negative fractures identified.?General Examination: ?GENERAL APPEARANCE:?Reveals a pleasant, alert, well-nourished, well- developed, well hydrated individual, who demonstrates proper attention to hygiene/body habitus, and is in no acute distress, Pt serves as own?historian for office visit today.?ORIENTED:?person, place, and time.?Neurological: ?SENSORY:?Neurological exam reveals intact sensorium, pain sensation normal, vibration sensation intact, pinprick sensation is normal in the lower extremities, Pt denies, anesthesia, burning, paresthesia, tingling, B/L.? Assessment: * Assessment: 1.?Pain in right toe(s) - M7 9.674???2.?Atherosclerosis of tanac[place] artery of both lower extremities, with unspecified presence of clinical manifestation - I70.203 (Primary) ??3.?Contusion of right great toe without damage to nail, initial encounter - S90.111A???Specify :Acute problem, Complicated w/ Multiple Tx Options(4),Dx New problem, Prognosis Uncertain (4)??? Plan: * Treatment: 2.?Pain in right toe(s)?Imaging: X ray : Foot, right 2V * Procedures:?Keratoma Treatment:?Parring or Cutting of Benign Hyperkeratotic Lesion(s)?(-56) 2-4 Lesions - Due to the at risk nature of the patients medical condition as documented in the exam findings, performance of this keratoderma treatment is medically necessary as its management by an unskilled/untrained nonprofessional would put this patients foot and overall health at risk. Therefore, the benign hyperkeratotic lesions, ( 2 ) in total, locations as stated and described in the exam (?Plantar,?Heel(s)?,?B/L?), were pared, and/or cut utilizing a sterile 15 blade, tissue nippers, and/or power dremel instrumentation by the physician of record - 99342, Q8.?Nail Reduction:?Nail Reduction?(-27) Trimming of all dystrophic [...] DYSTROPHIC NAILS ANY #, Modifiers: XS , [id number] TRIM SKIN LESIONS, 2 TO 4, Modifiers: XS , [id number] X-RAY EXAM OF RIGHT FOOT 2V, Modifiers: 26 , RT * Preventive Medicine:? ??Counseling:?Discussion:?-14: Office or other [...] have encouraged the patient to call the office.?Digital Treatment:?I explained to the patient the risks/benefits of all the different treatment options for their pain including: No treatment at all, Rest, Ice, New/supportive/wider/deeper Shoegear, Digital Padding/Strapping/Taping/Bracing/Gel protective sleeves, Foot/Ankle AFO Bracing, Stretching exercises, Deep Tissue Massage, Arch support/shoe inserts with splay metatarsal padding, and Custom orthoses. I insisted that any digital devices be removed daily and not worn overnight for safety. The patient is to carefully examine the toes daily for any skin irritation while using any splinting or padding device. The advantages and disadvantages of each option were discussed and the patients questions re: shoegear, padding, custom vs prefabricated inserts, activity level, and consistency in home treatment regimens for optimal success were answered to their verbally confirmed satisfaction.?P.R.I.C.E.:?The patient was counseled on the use of P.R.I.C.E. and NSAIDS (if well tolerated) to aid in the recovery from their painful condition, Recommended Topical analgesics including Aspercream/Biofreeze/Voltaren gel as directed.? ??Screening/Special Tests:?Fall Risk?Screening:?No falls in the past year Fall was an inadvertent slip from chair ?FALLS: Screening for Future Fall Risk?Have you had any falls with injury in the past year??No * Follow Up:?prn * Images: * Sign off status: Completed true * Provider:?Erik Mccray DPM Date:?2024 Generated for Deedee greenfield/Faxing/eTransmitting on:?07/25/2024 11:28 AM EDT History and Physical Notes * HPI (History of Present Illness) Category Sub-Category Detail Notes Category Not es Toe pain Nature: aching, bruising , discoloration, swelling, tenderness, throbbing Location: Great toe, Right noah t Duration: since DOI ( Feb) Onset/Cause: states traumatic (sl ipped while transferring from chair to camode) Course: worse Aggravated by: any pressure, standi ng/walking, shoes Treatments: rest/alter normal da iván activity, ice At Risk footcare Pt States Last PCP Visit: Date: 5 Examination Category Sub-Category Detail Notes Category Not es Neurological SENSORY: Neurological exa m reveals intact sensorium, pain sensation normal, vibration sensation intact, pinprick sensation is normal in the lower extremities, Pt denies, anesthesia, burning, paresthesia, tingling, B/L Dermatologic SKIN FINDINGS: Skin exam reveal s Keratotic lesion(s) located at , Plantar, Heel(s) , B/L Orthopedic DIGITAL DEFORMITIES: Reveals erin n to palpation, swelling, ecchymosis, and limited ROM, T5 General Examination GENERAL APPEARANCE: Reveals a pleasant, alert, well-nourished, well-developed, well hydrated individual, who demonstrates proper [...] T3, T4, T5, T6, T7, T8, T9 , Nail plate intact X-Rays - IMAGING REPORT Findings: severe generalize d decrease in bone density Fracture: Negative fractures i dentified Views: 2 views of Foot, AP, LO, RIGHT Taken by trained Podiatric Overhead Door Technician ( C O) Clinical Indication(s): Evaluate for Fra cture
--- OUTSIDE RECORDS SUMMARY | 2024-07-25 11:28 | XMS_ITS | Patient Health Record ---
Author Organization [facility] Address [address] [place] [address] Care Team Providers Care Wireless Sales Manager Name Role Phone Khadra Rivera MD Primary Care Provider Erik James Unavailable [phone] Allergies Allergen (clinical drug ingredient) Drug/Non Drug Allergy documented on EMR Reaction Allergy Type Onset Date Status acetaminophen / oxycodone Percocet Dizziness, Nausea Drug Allergy Active Adhesive Rash Allergy Active Reason For Referral No Information Medications Medication SIG (Take, Route, Frequency, Duration) Notes Start Date End Date Status Ketotifen Fumarate A ctive Zaditor Active Ibuprofen 200 MG 1 tablet with food o r milk as needed Orally Three times a day Active Fioricet Active Venlafaxine HCl ER 150 MG 1 capsule with food Orally Once a day for 30 day(s) Active Fish Oil 1000 MG 1 capsule Orally Onc e a day for 30 day(s) Active Vitamin D2 Active Triamterene-HCTZ 37.5-25 MG 1 tablet in the morning Orally Once a day for 30 day(s) Active Divalproex Sodium 125 MG 1 tablet Orally Once a day for 30 day(s) Active tylenol Active Heel Lift Convoluted Foam Suspension Boot As directed Wear Daily for as needed 07/17/2024 Active Depo-Provera 150 MG/ML 1 mL Intramuscular Active tiZANidine HCl 2 MG 1 tablet as needed O rally Three times a day Active diphenhydrAMINE HCl 25 MG 1 capsule at b edtime as needed Orally Once a day for 30 day(s) Active Claritin 10 MG 1 tablet Orally Once a day for 30 day(s) Active LORazepam 2 MG 1 tablet at bedtime as needed Orally Once a day Active cloNIDine HCl 0.2 MG 1 tablet Orally Onc e a day for 30 day(s) Active THC Free Active Baclofen 10 MG/20ML as directed Intrathecal Active Loperamide HCl 2 MG 1 capsule as needed Orally Four times a day Active Centrum Women - as directed Orally Active Levothyroxine Sodium 100 MCG 1 tablet in the morning on an empty stomach Orally Once a day for 30 day(s) Active Heel Lift Convoluted Foam Suspension Boot As directed Wear Daily for as needed 07/17/2024 Active Social History Tobacco Use: Social History [...] Problem Status W/U Status Risk Notes Problem Atherosclerosis of [place] arteries of the extremities ([id number]) Atherosclerosis of [place] artery of both lower extremities, with unspecified presence of clinical manifestation (I70.203) Active confirmed Problem Cerebral palsy (410178542) Cerebral palsy, unspecified type (G80.9) Active confirmed Problem Pressure injury of left foot stage I (disorder) (336732744223853) Pressure injury of left foot, stage 1 (L89.891) Active confirmed Response to treatment, Nonapplicable Problem Pressure injury of right foot stage I (disorder) (499836675234281) Pressure injury of right foot, stage 1 (L89.891) Active confirmed Response to treatment Nonapplicable Vital Signs Height 5ft 1in in 07/17/2024 Weight 200 lbs 07/17/2024 BMI 37.79 kg/m2 07/17/2024 Procedures Procedure Date Ordered Date Performed Result Body Sit e 87507-QEFB SKIN LESIONS, 2 TO 4 10/18/2023 N/A B8966-WSVENZSP DYSTROPHIC NAILS ANY # 10/18/2023 N/A 57938-ODZJ SKIN LESIONS, 2 TO 4 01/17/2024 N/A S0646-GSVVRYJL DYSTROPHIC NAILS ANY # 01/17/2024 N/A 79598-SEUU SKIN LESIONS, 2 TO 4 04/17/2024 N/A V4899-LAUKZBIW DYSTROPHIC NAILS ANY # 04/17/2024 N/A 42188-RGCW SKIN LESIONS, 2 TO 4 07/17/2024 N/A T5995-JNXPDWHY DYSTROPHIC NAILS ANY # 07/17/2024 N/A Encounters Encounter Location Date Provider Diagnosis [address] [address] 10/18/2023 Erik Mccray Atherosclerosis of [place] artery of both lower extremities, with unspecified presence of clinical manifestation I70.[address] [address] 01/17/2024 Erik Mccray Atherosclerosis of [place] artery of both lower extremities, with unspecified presence of clinical manifestation I70.[address] [address] 04/17/2024 Erik Mccray Atherosclerosis of [place] artery of both lower extremities, with unspecified presence of clinical manifestation I70.203 ; Pain in right toe(s) M79.674 and Contusion of right great toe without damage to nail, initial encounter S90.111A [address] [address] 07/17/2024 Erik Mccray Atherosclerosis of [place] artery of both lower extremities, with unspecified presence of clinical manifestation I70.203 ; Cerebral palsy, unspecified type G80.9 ; Pressure injury of left foot, stage 1 L89.891 and Pressure injury of right foot, stage [address] [address] 07/20/2024 Erik Mccray Assessments Encounter Date Diagnosis (ICD Code) Assessment Notes Treatment Notes Treatment Clinical Notes Section Notes 10/18/2023 Atherosclerosis of [place] artery of both lower extremities, with unspecified presence of clinical manifestation (ICD-10 - I70.203) 01/17/2024 Atherosclerosis of [place] artery of both lower extremities, with unspecified presence of clinical manifestation (ICD-10 - I70.203) 04/17/2024 Pain in right toe(s) (ICD-10 - M79.674) 04/17/2024 Atherosclerosis of [place] artery of both lower extremities, with unspecified presence of clinical manifestation (ICD-10 - I70.203) 07/17/2024 Atherosclerosis of [place] artery of both lower extremities, with unspecified presence of clinical manifestation (ICD-10 - I70.203) 07/17/2024 Cerebral palsy, unspecified type (ICD-10 - G80.9) 07/17/2024 Pressure injury of left foot, stage 1 (ICD-10 - L89.891) Response to treatment, Nonapplicable 04/17/2024 Contusion of right great toe without damage to nail, initial encounter (ICD-10 - S90.111A) 07/17/2024 Pressure injury of right foot, stage 1 (ICD-10 - L89.891) Response to treatment Nonapplicable Plan Of Treatment Pending Test Test Name Order Date X ray : Foot, right 2V 04/17/2024 21211-TGQL SKIN LESIONS, 2 TO 4 07/18/19 25 83670-SFWP SKIN LESIONS, 2 TO 4 02/25/20 23 15814-PNJO SKIN LESIONS, 2 TO 4 05/19/19 24 44437-BJNA SKIN LESIONS, 2 TO 4 10/18/19 24 78332-LLTH SKIN LESIONS, 2 TO 4 01/17/20 24 77995-LXAJ SKIN LESIONS, 2 TO 4 04/17/19 25 T8650-AFPVMXMA DYSTROPHIC NAILS ANY # Q2011-OCRDWLXL DYSTROPHIC NAILS ANY # H8978-BYXYONIO DYSTROPHIC NAILS ANY # F3399-MXHPCOAN DYSTROPHIC NAILS ANY # N8126-VUHDRURF DYSTROPHIC NAILS ANY # W0592-WIECNMTD DYSTROPHIC NAILS ANY # Next Appt Details Provider Name:Erik Mccray , 10/19/2024 11:30:00 AM, [address], [address], [place], [address], Insurance Providers Payer Name Payer Address Payer Phone Subscriber Number Group Number Insured Name Patient Relationship to Insured Coverage Start Date Coverage End Date [employer] 65 Medicare Preferred [address] [place] [address] [phone] [id number] Nata Priest Self - patient is the insured Medical (General) History Medical History History ICD Code Anxiety Arthritis Back,Hip,and Knee pain Depression Headaches/Migraines High blood pressure Poor circulation asthma cerebral palsey Lymphedema Surgical History Surgery Date(Month/Year) Left knee Arthrocopic 1989 Hamstring abd release as a child bunionectomy - both feet
== END 2024-07-25 11:06 | disposition home or self-care (01) ==
LOC: HO.HMCFM 10:05
PROVIDERS: PCP Internal Medicine; Visit Provider Internal Medicine
DX: E78.5 Hyperlipidemia, unspecified (principal); E66.813 Obesity, class 3; I10 Essential (primary) hypertension; Z68.41 Body mass index [BMI] 40.0-44.9, adult

== ENCOUNTER 2024-07-25 11:08 | Outpatient (REF) | payer MEDICARE, MEDICAID, SELFPAY ==
[2024-07-25 15:22] LABS: Alanine Aminotransferase 22 U/L (0-31); Albumin Level 4.3 g/dL (3.5-5.0); Anion Gap 13 (12-20); Aspartate Amino Transferase 25 U/L (5-31); Bilirubin Total 0.3 mg/dL (0.0-1.0); Blood Urea Nitrogen 17 mg/dL (9-16); Calcium 9.4 mg/dL (8.4-10.2); Carbon Dioxide 26 mmol/L (22-29); Chloride 103 mmol/L (96-108); Estimated Glomerular Filt Rate > 60; Glucose Random 90 mg/dL (60-115); Potassium 3.7 mmol/L (3.3-5.1); Sodium 138 mmol/L (135-145); TSH reflex Free T4 4.31 uIU/mL (0.32-4.0); Total Protein 7.1 g/dL (6.5-8.0)
[2024-07-25 15:35] LABS: Estimated Average Glucose 97 mg/dL; Hemoglobin A1C 126.8907 umol/L; Total Hemoglobin (HGBA1C) 4021.3951 umol/L
[2024-07-25 17:10] LABS: Alkaline Phosphatase 143 U/L (39-117)
[2024-07-25 17:28] LABS: Free T4 (Free Thyroxine) 0.97 ng/dL (0.71-1.85)
== END 2024-07-25 11:09 | disposition home or self-care (01) ==
LOC: HO.WFDLDS 11:08
PROVIDERS: Visit Provider Internal Medicine
DX: E03.9 Hypothyroidism, unspecified (principal); Z13.228 Encounter for screening for other metabolic disorders; R53.1 Weakness; Z13.1 Encounter for screening for diabetes mellitus
CPT/HCPCS: 36415; 80053; 83036; 84439; 84443; 99212

== ENCOUNTER → 2024-11-14 10:35 | Outpatient (REF) | payer MEDICARE, MEDICAID, SELFPAY ==
--- OUTSIDE RECORDS SUMMARY | 2024-11-14 11:24 | XMS_ITS | Patient Health Record ---
Author Organization [facility] Address [address] [place] [address] Care Team Providers Care Complaints Coordinator Name Role Phone Khadra Rivera MD Primary Care Provider Erik James Unavailable [phone] Allergies Allergen (clinical drug ingredient) Drug/Non Drug Allergy documented on EMR Reaction Allergy Type Onset Date Status acetaminophen / oxycodone Percocet Dizziness, Nausea Drug Allergy Active Adhesive Rash Allergy Active Reason For Referral No Information Medications Medication SIG (Take, Route, Frequency, Duration) Notes Start Date End Date Status Baclofen 10 MG/20ML as directed Intrathecal Active Ketotifen Fumarate A ctive Zaditor Active Ibuprofen 200 MG 1 tablet with food o r milk as needed Orally Three times a day Active Fioricet Active Venlafaxine HCl ER 150 MG 1 capsule with food Orally Once a day; Duration: 30 day(s) Active Fish Oil 1000 MG 1 capsule Orally Onc e a day; Duration: 30 day(s) Active Vitamin D2 Active diphenhydrAMINE HCl 25 MG 1 capsule at b edtime as needed Orally Once a day; Duration: 30 day(s) Active Triamterene-HCTZ 37.5-25 MG 1 tablet in the morning Orally Once a day; Duration: 30 day(s) Active Divalproex Sodium 125 MG 1 tablet Orally Once a day; Duration: 30 day(s) Active tylenol Active cloNIDine HCl 0.2 MG 1 tablet Orally Onc e a day; Duration: 30 day(s) Active THC Free Active Depo-Provera 150 MG/ML 1 mL Intramuscular Active tiZANidine HCl 2 MG 1 tablet as needed O rally Three times a day Active Heel Lift Convoluted Foam Suspension Boot As directed Wear Daily; Duration: 365 days Active Centrum Women - as directed Orally Active Levothyroxine Sodium 100 MCG 1 tablet in the morning on an empty stomach Orally Once a day; Duration: 30 day(s) Active Heel Lift Convoluted Foam Suspension Boot As directed Wear Daily; Duration: 365 days Active Claritin 10 MG 1 tablet Orally Once a day; Duration: 30 day(s) Active LORazepam 2 MG 1 tablet at bedtime as needed Orally Once a day Active Loperamide HCl 2 MG 1 capsule as needed Orally Four times a day Active Immunizations Vaccine Route Administration Date Status Comme nts Influenza Unknown 11/22/2023 Administered Social History Tobacco Use: Social History Observation Description Date Details (start date - stop date) Never Smoker NA - NA Tobacco use other than smoking: Question Answer Notes Are you an other tobacco user? No Tobacco Control (Standard) Question Answer Notes Tobacco use: Nonsmoker Additional Findings: Tobacco non-user Current no nsmoker AUDIT-C (Standard) Question Answer Notes Did you have a [...] (0 point) How often did you have six o r more drinks on one occasion in the past year? Never (0 point) Points 1 Interpretation Negative Problems Problem Type SNOMED Code ICD Code Onset Dates Problem Status W/U Status Risk Notes Problem Bilateral atherosclerosis of arteries of lower limbs (disorder) (7562962106900885 7) Atherosclerosis of [place] artery of both lower extremities, with unspecified presence of clinical manifestation (I70.203) Active confirmed Problem Cerebral palsy (837463616) Cerebral palsy, unspecified type (G80.9) Active confirmed Problem Pressure injury of left foot stage I (disorder) (179219531943460) Pressure injury of left foot, stage 1 (L89.891) Active confirmed Response to treatment, Nonapplicable Problem Pressure injury of right foot stage I (disorder) (432375537097347) Pressure injury of right foot, stage 1 (L89.891) Active confirmed Response to treatment Nonapplicable Vital Signs Height 5ft 1in in 10/19/2024 Weight 200 lbs 10/19/2024 BMI 37.79 kg/m2 10/19/2024 Procedures Procedure Date Ordered Date Performed Result Body Sit e 39061-NBUS SKIN LESIONS, 2 TO 4 01/17/2024 N/A M7786-FDGHFUIU DYSTROPHIC NAILS ANY # 01/17/2024 N/A 27539-AWXQ SKIN LESIONS, 2 TO 4 04/17/2024 N/A K9630-IRMWPYHN DYSTROPHIC NAILS ANY # 04/17/2024 N/A 12221-BISR SKIN LESIONS, 2 TO 4 07/17/2024 N/A U0362-NQBCTJXK DYSTROPHIC NAILS ANY # 07/17/2024 N/A 79532-JZSV SKIN LESIONS, 2 TO 4 10/19/2024 N/A M6120-EPXYIYLN DYSTROPHIC NAILS ANY # 10/19/2024 N/A Encounters Encounter Location Date Provider Diagnosis [address] [address] 01/17/2024 Shazia Atherosclerosis of [place] artery of both lower extremities, with unspecified presence of clinical manifestation I70.[address] [address] 04/17/2024 cruz GallegosShazia Atherosclerosis of [place] artery of both lower extremities, with unspecified presence of clinical manifestation I70.203 ; Pain in right toe(s) M79.674 and Contusion of right great toe without damage to nail, initial encounter S90.111A [address] [address] 07/17/2024 Shazia Atherosclerosis of [place] artery of both lower extremities, with unspecified presence of clinical manifestation I70.203 ; Cerebral palsy, unspecified type G80.9 ; Pressure injury of left foot, stage 1 L89.891 and Pressure injury of right foot, stage [address] [address] 10/19/2024 cruz GallegosShazia Atherosclerosis of [place] artery of both lower extremities, with unspecified presence of clinical manifestation I70.203 ; Cerebral palsy, unspecified type G80.9 ; Pressure injury of left foot, stage 1 L89.891 and Pressure injury of right foot, stage 1 L89.891 [facility] [place] [address] [facility] [address] [place] [address] 07/20/2024 Erik Mccray Assessments Encounter Date Diagnosis (ICD Code) Assessment Notes Treatment Notes Treatment Clinical Notes Section Notes 01/17/2024 Atherosclerosis of [place] artery of both lower extremities, with unspecified presence of clinical manifestation (ICD-10 - I70.203) 04/17/2024 Pain in right toe(s) (ICD-10 - M79.674) 04/17/2024 Atherosclerosis of [place] artery of both lower extremities, with unspecified presence of clinical manifestation (ICD-10 - I70.203) 07/17/2024 Atherosclerosis of [place] artery of both lower extremities, with unspecified presence of clinical manifestation (ICD-10 - I70.203) 07/17/2024 Cerebral palsy, unspecified type (ICD-10 - G80.9) 10/19/2024 Atherosclerosis of [place] artery of both lower extremities, with unspecified presence of clinical manifestation (ICD-10 - I70.203) 10/19/2024 Cerebral palsy, unspecified type (ICD-10 - G80.9) 10/19/2024 Pressure injury of left foot, stage 1 (ICD-10 - L89.891) 07/17/2024 Pressure injury of left foot, stage 1 (ICD-10 - L89.891) Response to treatment, Nonapplicable 04/17/2024 Contusion of right great toe without damage to nail, initial encounter (ICD-10 - S90.111A) 07/17/2024 Pressure injury of right foot, stage 1 (ICD-10 - L89.891) Response to treatment Nonapplicable 10/19/2024 Pressure injury of right foot, stage 1 (ICD-10 - L89.891) Plan Of Treatment Pending Test Test Name Order Date X ray : Foot, right 2V 04/17/2024 68560-PHZK SKIN LESIONS, 2 TO 4 07/18/19 25 76907-ALTX SKIN LESIONS, 2 TO 4 10/20/19 25 03972-PACX SKIN LESIONS, 2 TO 4 02/25/20 23 50070-BMFG SKIN LESIONS, 2 TO 4 05/19/19 24 24857-HIZZ SKIN LESIONS, 2 TO 4 10/18/19 24 84953-AAAM SKIN LESIONS, 2 TO 4 01/17/20 24 02231-CGKA SKIN LESIONS, 2 TO 4 04/17/19 25 Q7429-PPLYRIXQ DYSTROPHIC NAILS ANY # J8021-NZGFFIEJ DYSTROPHIC NAILS ANY # E3527-IVQMNWMB DYSTROPHIC NAILS ANY # N2627-PVUQFSAQ DYSTROPHIC NAILS ANY # O3525-JRUILUJI DYSTROPHIC NAILS ANY # G5372-LTGIFMCC DYSTROPHIC NAILS ANY # F8017-JSUWLVTZ DYSTROPHIC NAILS ANY # Next Appt Details Provider Name:Erik Walker Shazia , 01/31/2025 10:45:00 AM, [address] [address], [place], [address], Insurance Providers Payer Name Payer Address Payer Phone Subscriber Number Group Number Insured Name Patient Relationship to Insured Coverage Start Date Coverage End Date [employer] 65 Medicare Preferred [address] [place] [address] [phone] [id number] Nata Priest Self - patient is the insured Medical (General) History Medical History History ICD Code Anxiety Arthritis Back,Hip,and Knee pain Depression Headaches/Migraines High blood pressure Poor circulation asthma cerebral palsey Lymphedema Surgical History Surgery Date(Month/Year) Left knee Arthrocopic 1989 Hamstring abd release as a child bunionectomy - both feet
== END ==
LOC: HO.SL 10:35
PROVIDERS: PCP Internal Medicine; Visit Provider Internal Medicine
DX: G47.33 Obstructive sleep apnea (adult) (pediatric) (principal); R06.83 Snoring; E66.813 Obesity, class 3; R40.0 Somnolence
CPT/HCPCS: 95806

== ENCOUNTER → 2024-11-14 10:51 | Outpatient (BNV) | payer MEDICARE, MEDICAID, SELFPAY | PROVIDERS: PCP Internal Medicine; Visit Provider Internal Medicine | DX: G47.33 Obstructive sleep apnea (adult) (pediatric) (principal) | CPT/HCPCS: 95806 ==

== ENCOUNTER 2024-12-08 10:22 | Outpatient (AMB) | payer MEDICARE, MEDICAID, SELFPAY ==
--- NOTE | 2024-12-08 11:40 | MHC.PC.OV ---
Vital Signs 12/08/24 11:45 Height 5 ft 1 in Weight 222 lb BMI 41.9 BP 116/68 Blood Pressure Location Rt brachial Position Sitting Respiration 15 Pulse 61 Pulse Source Pulse Oximeter Temp 97.9 F Temp Source Temporal Artery Scan Pulse Oximetry (%) 97 Oxygen Delivery Method Room Air Intake Visit Reasons: follow up Intake Note: Nata presents in the office today for a follow up. Patient needs a refill of her Fioricet. Patient needs a prescription for a COVID and Shingles shot so that the pharmacy will give them to her. Allergies acetaminophen (From Percocet) Allergy (Verified 12/08/24 11:43) Vomiting oxycodone (From Percocet) Allergy (Verified 12/08/24 11:43) Vomiting adhesive bandaids Allergy (Uncoded 12/08/24 11:43) skin irritation Tobacco use date assessed: 12/08/24 Dental Screening Dental Screen Date: 12/08/24 Did you have a dental visit in the last 12 months?: No Did you have a dental problem in the last 6 months where you did not have access to dental care?: No Was dental information given to patient?: Patient has dentist HPI HPI Comments History of Present Illness Details 53 year old female with past medical cerebral palsy with sequelae, WC bound, depression, hypertension, hyperlipidemia, headaches, hypothyroid, allergic rhinitis presenting for follow up CV: On trimaterene-HCTZ 37.5-25mg daily. BP well controlled. No chest pain or shortness of breath. she has hld, not on statin therapy CP: Weakness, deficits in coordination, balance. -Right hand pain. Pain is worse in medial wrist, base of thumb and 1st mcp. Doing PT/OT -She is at least a partial assist for all of her ADLs (toileting, grooming, showering), full assist for many (cooking, cleaning). Sister does finances -Incontinence: scripts utd BH: Currently without psych provider. On effexor 150mg daily, divalproex. Endo: Hypothyroid stable on levothyroxine 112mcg daily. She is obese and unable to exercise due to cerebral palsy. she received a zepbound denial. In the interim she has been diagnosed with ARCENIO. Reports mammo UTD Decllines colonoscopy. Tried cologuard twice but results invalid ROS see HPI PHYSICAL EXAM: GENERAL: Comfortable in WC. Alert and oriented x 3. NAD EYES: EOMI. Anicteric. HENT: Moist mucous membranes. No scleral icterus. No cervical lymphadenopathy. LUNGS: Clear to auscultation bilaterally. CARDIOVASCULAR: Regular rate and rhythm. No murmur. No JVD. ABDOMEN: Soft, non-tender +bs EXTREMITIES: No edema. Non-tender. SKIN: No rashes or lesions. Warm. NEUROLOGIC: Stable chronic neurologic sequelae PSYCHIATRIC: Cooperative. Appropriate mood and affect [facility] Medical History Spasticity Seasonal allergies Obesity, Class I, BMI 30-34.9 Lymphedema Lobular carcinoma HTN (hypertension) Anxiety and depression Family History Father Throat cancer Mother Fibromyalgia Maternal Grandfather Lung cancer Emphysema lung Paternal Grandfather Diabetes Lymphoma Paternal Grandmother Lymphoma Social History Housing: House Alcohol intake: never Patient Tobacco Use Status: Never used Tobacco e-Cigarette/Vaping Use: Never Used Second Hand Smoke Exposure: Yes Substance Use Type: Marijuana service: Yes Current occupational status: unemployed Cognitive needs: No Hearing needs: No Vision needs: Yes (glasses) Questionnaire Thrive Questionnaire Date Thrive assessed: 09/14/23 MARJORIE-7 AMB Questionnaire MARJORIE-7 Date MARJORIE - 7 assessed: 09/14/23 Source: Developed by Drs. Aris Wakefield, Marycruz Louis, Kelton Altamirano and colleagues, with an educational sanots from [employer]. Physical exam (Primary Care) Tobacco/Smoking Status: Tobacco use Status Tobacco use date assessed 07/25/24 12/08/24 11:40 Patient Tobacco Use Status Never used Tobacco 12/08/24 11:40 e-Cigarette/Vaping Use Never Used 12/08/24 11:40 Thrive Assessment: Date of Thrive Assessment Date Thrive assessed 09/14/23 12/08/24 11:40 Office Procedures Flu Questionnaire Does the patient have a severe egg allergy?: No Does the patient have severe life threatening allergies?: No Does the patient have a fever or illness today?: No Has the patient ever had Guillain-[place] Syndrome?: No Has the patient ever had any past reaction to a flu shot?: No Immunizations Fluarix 8225-3715 (PF) 45 mcg (15 mcg x 3)/0.5 mL IM syringe Performing Provider: Khadra Abarca MD Performing Location: [facility] [place] [facility] Administered by: Jessica Jackman CMA on 12/08/24 12:02 Dose Route Admin Location Dispensed Lot Number Expiration Date NDC Supervisor Record Press 0.5 mL IM Left Deltoid 0.5 mL [id number] 09/18/24 22250-477-11 [employer] VIS Given Date VIS Provided VIS Publication Date 12/08/24 Single Vaccine 24 Eligibility Eligibility Date Funding Source Not [facility] Eligible 12/08/24 Private Coding Level of Care Code Est Pt Level 4 (68012) Diagnoses Primary hypertension I10 Hypertension type: primary hypertension Dyslipidemia E78.5 Recurrent major depressive disorder, in partial remission F33.41 Active/Remission status: in partial remission 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 Obstructive sleep apnea G47.33 Assessment & Plan Assessment & Plan (1) HTN (hypertension): Code(s): I10 - Essential (primary) hypertension Category: Medical Qualifiers: Hypertension type: primary hypertension Qualified Code(s): I10 - Essential (primary) hypertension (2) Dyslipidemia: Code(s): E78.5 - Hyperlipidemia, unspecified Category: Medical (3) Major depression, recurrent: Code(s): F33.9 - Major depressive disorder, recurrent, unspecified Category: Medical Qualifiers: Active/Remission status: in partial remission Qualified Code(s): F33.41 - Major depressive disorder, recurrent, in partial remission (4) Cerebral palsy: Code(s): G80.9 - Cerebral palsy, unspecified Category: Medical Qualifiers: Cerebral palsy type: spastic quadriplegic Qualified Code(s): G80.0 - Spastic quadriplegic cerebral palsy (5) Obstructive sleep apnea: Code(s): G47.33 - Obstructive sleep apnea (adult) (pediatric) Category: Medical Plan 54 yo for follow up CP-received DME orders. Shingrix and covid ordered HTN controlled SARABIA controlled Anxiety, depression are stable Orders: Orders Hemoglobin A1c Today R73.09 - Other abnormal glucose Influenza 8166-3770 Immunization Today Z23 - Encounter for immunization Medications: New adjuvant AS01B (PF)vial 1 of 2 (Shingrix Adjuvant Component (PF) intramuscular suspension) 0.5 mL IM ONCE 0.5 mL 0RF adjuvant AS01B (PF)vial 1 of 2 (Shingrix Adjuvant Component (PF) intramuscular suspension) 0.5 mL IM ONCE 0.5 mL 0RF Zepbound (tirzepatide (weight loss)) for 4 weeks 2.5 mg (0.5 mL) subcut QWEEK 2 mL 3RF NS E66.813 - Obesity, class 3, G47.33 - Obstructive sleep apnea (adult) (pediatric) varicella-zoster gE vac,2 of 2 (Shingrix gE Antigen Component) 0.5 mL IM ONCE 1 ea 0RF COVID vac 25-26(12up)(Pfi)(PF) 0.3 mL IM ONCE 3 mL 0RF varicella-zoster gE vac,2 of 2 (Shingrix gE Antigen Component) 0.5 mL IM ONCE 1 ea 0RF Refilled dyoauelnbt-fskpvvmtivmpp-zxpg 50-325-40 mg 1 tab PO Q6H 28 days 112 tabs 0RF levothyroxine 112 mcg PO DAILY 90 tabs 3RF fqmhnywnad-znvjjnheytkgc-edxz 50-325-40 mg 1 tab PO Q6H 112 tabs 0RF 28 days ergocalciferol (vitamin D2) 50,000 units PO QWEEK 12 caps 3RF 12 weeks lorazepam 2 mg PO DAILY PRN 30 tabs 3RF anxiety, muscle spasm Discontinued Ozempic (semaglutide) for 4 weeks Discontinued Reason: Doctor's Order 0.25 mg (0.368 mL) subcut QWEEK 3 mL 0RF NS E66.813 - Obesity, class 3, E78.5 - Hyperlipidemia, unspecified, I10 - Essential (primary) hypertension levothyroxine Discontinued Reason: Doctor's Order 100 mcg PO DAILY 90 tabs 3RF
[2024-12-08 11:45] VITALS: BP 116/68; PULSE 61; RESP 15; TEMP 36.6; O2SAT 97; BMI 41.9
== END 2024-12-08 12:21 | disposition home or self-care (01) ==
LOC: HO.HMCFM 10:23
PROVIDERS: PCP Internal Medicine; Visit Provider Internal Medicine
DX: I10 Essential (primary) hypertension (principal); E78.5 Hyperlipidemia, unspecified; F33.41 Major depressive disorder, recurrent, in partial remission; G80.0 Spastic quadriplegic cerebral palsy; G47.33 Obstructive sleep apnea (adult) (pediatric); Z23 Encounter for immunization

== ENCOUNTER 2024-12-08 10:22 | Outpatient (REF) | payer MEDICARE, MEDICAID, SELFPAY | END 2024-12-08 10:23 | disposition home or self-care (01) | LOC: HO.WFDLDS 10:22 | PROVIDERS: PCP Internal Medicine; Visit Provider Internal Medicine | DX: I10 Essential (primary) hypertension (principal); Z23 Encounter for immunization; E78.5 Hyperlipidemia, unspecified; F33.41 Major depressive disorder, recurrent, in partial remission; G80.0 Spastic quadriplegic cerebral palsy; G47.33 Obstructive sleep apnea (adult) (pediatric) | CPT/HCPCS: 90471; 90656; 99212 ==